=== PATIENT | male | born 1950 | race Hispanic/Latino ===

== ENCOUNTER → 2018-04-15 | Outpatient (CLI) | payer MEDICARE, OTHER | END | disposition home or self-care (01) | LOC: OIH 14:28 | PROVIDERS: ATTEND Family Medicine | DX: I10 Essential (primary) hypertension (principal); M25.78 Osteophyte, vertebrae | CPT/HCPCS: 71046 ==

== ENCOUNTER 2022-01-05 16:19 | Emergency (ER) | payer MEDICARE ==
[~2022-01-05] VITALS: Ht 167.6 cm; Wt 74.8 kg
[2022-01-05 16:46] LABS: BASOPHILS % (AUTO) 0.5 % (0.0-5.0); EOSINOPHILS % (AUTO) 0.8 % (0.0-8.0); HEMATOCRIT 35.2 % (42-54); LYMPHOCYTES % (AUTO) 10.6 % (21.0-51.0); MEAN CORPUSCULAR HEMOGLOBIN 30.7 pg (27.0-33.0); MEAN CORPUSCULAR HGB CONC 34.4 g/dL (32.0-36.0); MEAN CORPUSCULAR VOLUME 89.3 fL (79-99); MONOCYTES % (AUTO) 10.3 % (3.0-13.0); NEUTROPHILS % (AUTO) 77.2 % (40.0-77.0); PLATELET COUNT (AUTO) 171 K/uL (130-400); RED BLOOD CELL COUNT(AUTO) 3.94 MIL/uL (4.50-6.20); RED CELL DISTRIBUTION WIDTH 13.4 % (11.0-15.5); WHITE BLOOD COUNT (AUTO) 10.8 K/uL (4.8-10.8)
[2022-01-05 16:57] LABS: POTASSIUM 4.8 mmol/L (3.5-5.1)
[2022-01-05 17:01] LABS: ALBUMIN 3.2 g/dL (3.5-5.0); TOTAL PROTEIN, SERUM 7.6 g/dL (6.0-8.3)
[2022-01-05 17:09] LABS: APPEARANCE,URINE CLEAR (CLEAR); BILIRUBIN,URINE NEGATIVE (NEGATIVE); COLOR,URINE YELLOW (YELLOW); GLUCOSE, URINE (UA) 50 mg/dL (NEGATIVE); KETONES,URINE 5 mg/dL (NEGATIVE); LEUKOCYTE ESTERASE ,URINE NEGATIVE Leu/uL (NEGATIVE); NITRATE,URINE NEGATIVE (NEGATIVE); OCCULT BLOOD,URINE SMALL (NEGATIVE); PH,URINE 5.5 (5.0-8.0); PROTEIN,URINE 200 mg/dL (NEGATIVE); UROBILINOGEN,URINE 0.2 mg/dL (0.2-1.0)
[2022-01-05 17:13] LABS: BACTERIA,URINE RARE /HPF (None Seen); MUCUS,URINE RARE LPF (None Seen); RBC,URINE 0-1 /HPF (0-1); SQUAMOUS EPITHELIAL CELL,UR FEW /HPF (0-2)
[2022-01-05] MEDS ORDERED: 0.9%NACL 1000ML 1,000 ML IV SCH ×2 (18:00→18:30)
[2022-01-05] MEDS ORDERED: KETOROLAC 30MG VIAL (30MG/ML) IVP STA (18:37)
[2022-01-05] MEDS ORDERED: TAMSULOSIN HCL 0.4 MG CAP.ER.24H PO STA (18:37)
[2022-01-05 18:58] LABS: CREATININE 2.8 mg/dL (0.5-1.5); POTASSIUM 4.3 mmol/L (3.5-5.1)
[2022-01-05] MEDS ORDERED: NIFEDIPINE 10 MG CAP PO ONE (20:30)
[2022-01-05] MEDS ORDERED: ACET-2079 PO (20:55)
[2022-01-05 21:36] VITALS: BP 108/47
== END 2022-01-05 21:49 | disposition home or self-care (01) ==
LOC: EDH 16:19
DX: N20.0 Calculus of kidney (principal); N13.30 Unspecified hydronephrosis; I12.9 Hypertensive chronic kidney disease with stage 1 through stage 4 chronic kidney disease, or unspecified chronic kidney disease; E11.22 Type 2 diabetes mellitus with diabetic chronic kidney disease; N18.9 Chronic kidney disease, unspecified; E78.00 Pure hypercholesterolemia, unspecified
CPT/HCPCS: 99285; 74176; 96374; 96361; 80053; 83690; 85025; 81001; 36415; 93005; 80048; J1885; 96375